=== PATIENT | female | born 1960 | race Caucasian/White ===

== ENCOUNTER 2023-01-30 08:58 | Outpatient (CLI) | payer OTHER, SELFPAY | END 2023-01-30 08:59 | disposition home or self-care (01) | PROVIDERS: PCP Family Medicine; Visit Provider Family Medicine | DX: Z00.00 Encounter for general adult medical examination without abnormal findings (principal); E78.00 Pure hypercholesterolemia, unspecified; R53.83 Other fatigue | CPT/HCPCS: 80053; 80061 ==

== ENCOUNTER 2023-12-11 23:19 | Outpatient (CLI) | payer OTHER, SELFPAY ==
[2023-12-12 04:04] LABS: Basophils Absolute Auto 0.03 K/uL (0.00-0.30); Basophils Percent Auto 0.5 % (0.0-3.0); Eosinophils Absolute Auto 0.01 K/uL (0.00-0.50); Eosinophils Percent Auto 0.2 % (0.0-7.0); Hematocrit 44.7 % (33.0-51.0); Hemoglobin* 14.6 gm/dL (12.0-16.0); Immature Granulocytes Abs Auto 0.03 K/uL (0.00-0.30); Immature Granulocytes Pct Auto 0.5 %; Lymphocytes Absolute Auto 1.17 K/uL (0.90-2.90); Mean Corpuscular HGB Conc 33 gm/dL (32-36); Mean Corpuscular Hemoglobin 30 pg (26-34); Mean Corpuscular Volume 93 fL (80-100); Monocytes Percent Auto 5.9 % (0.0-11.0); Neutrophils Percent Auto 71.9 % (42.0-72.0); Platelet Count* 281 K/uL (140-440); RDW Coefficient of Variation % 13.1 % (11.5-15.5); Red Blood Count 4.81 m/uL (4.00-5.20); White Blood Count* 5.57 K/uL (4.50-11.00)
[2023-12-12 04:05] LABS: Slide Review Reflex No
[2023-12-12 04:43] LABS: Erythrocyte SedimentationRate* 2 mm/hr (2-20)
== END 2023-12-11 23:20 | disposition home or self-care (01) ==
LOC: NPINS 23:36
PROVIDERS: PCP Family Medicine; Visit Provider Ophthalmology
DX: H35.063 Retinal vasculitis, bilateral (principal); H44.113 Panuveitis, bilateral
CPT/HCPCS: 85025; 85651; 86480

== ENCOUNTER 2024-12-11 09:56 | Outpatient (CLI) | payer MEDICARE, SELFPAY | END 2024-12-11 09:57 | disposition home or self-care (01) | PROVIDERS: PCP Family Medicine; Visit Provider Family Medicine | DX: R25.1 Tremor, unspecified (principal); Z13.21 Encounter for screening for nutritional disorder | CPT/HCPCS: 80048; 82607; 84443 ==